=== PATIENT | female | born 1985 ===

== ENCOUNTER 2019-03-20 10:00 | Inpatient (IN) | payer OTHER ==
[2019-03-20 10:55] VITALS: BMI 29.6
[2019-03-20] MEDS ORDERED: BUTORPHANOL TARTRATE 1 MG/ML VIAL ONE ×2 (11:00)
[2019-03-20] MEDS ORDERED: PROMETHAZINE HCL 25 MG/1 ML VIAL ONE (11:00)
[2019-03-20] MEDS: DEXTROSE 5%-LACTATED RINGERS 1,000 ML IV SCH (11:00)
[2019-03-20 11:15] LABS: BASO % 0.4 % (0-2.0); EOS % 0.4 % (0-4.5); HEMATOCRIT 36.4 % (32.4-45.2); HEMOGLOBIN 11.9 GM/dL (10.7-15.3); LYMPH % 11.8 % (8-40); MCH 27.2 pg (25.7-33.7); MCHC 32.7 g/dl (32.0-36.0); MEAN CELL VOLUME 83.3 fl (80-96); MEAN PLT VOLUME 9.3 fl (7.5-11.1); MONO % 7.8 % (3.8-10.2); NEUT % 79.6 % (42.8-82.8); PLATELET COUNT 298 K/MM3 (134-434); RBC 4.37 M/mm3 (3.60-5.2); RDW 16.9 % (11.6-15.6); WHITE BLOOD COUNT 13.3 K/mm3 (4.0-10.0)
[2019-03-20 11:26] LABS: INR 0.95 (0.83-1.09); PROTHROMBIN TIME (PATIENT) 11.2 SEC (9.7-13.0)
[2019-03-20 11:29] LABS: ACTIVATED PTT 27.2 SECONDS (25.2-36.5)
[2019-03-20 11:40] LABS: BLOOD UREA NITROGEN 7.8 mg/dL (7-18); CALCIUM 9.4 mg/dL (8.5-10.1); CREATININE 0.7 mg/dL (0.55-1.3); POTASSIUM 4.2 mmol/L (3.5-5.1)
--- NOTE | 2019-03-20 13:48 | HP ---
Past Medical History - Primary Care Physician PCP:: Robby Louis - Admission Chief Complaint: 38 weeks, labor History Source: Patient Limitations to Obtaining History: No Limitations - Past Medical History ...: 4 ...Para: 1 ...Term: 1 ...Spon : 1 ...Induced : 1 ...LMP: 06/13/18 ... Weeks Gestation by Dates: 39.5 ...EDC by Dates: 03/22/19 ...EDC by Sono: 03/20/19 Heme/Onc: Yes: Anemia - Past Surgical History Hx Myomectomy: No Hx Transabdominal Cerclage: No - Smoking History Smoking history: Never smoked Have you smoked in the past 12 months: No - Alcohol/Substance Use Hx Alcohol Use: No History of Substance Use: reports: None - Social History ADL: Independent History of Recent Travel: No Home Medications - Allergies Allergies/Adverse Reactions: Allergies Allergy/AdvReac Type Severity Reaction Status Date / Time No Known Allergies Allergy Verified 03/20/19 11:30 - Home Medications Home Medications: Ambulatory Orders Vitamins (Sjr) - 1 tab PO DAILY 05/17/13 Review of Systems - Review of Systems Constitutional: reports: No Symptoms Eyes: reports: No Symptoms HENT: reports: No Symptoms Neck: reports: No Symptoms Cardiovascular: reports: No Symptoms Respiratory: reports: No Symptoms Gastrointestinal: reports: No Symptoms Genitourinary: reports: No Symptoms Breasts: reports: No Symptoms Reported Musculoskeletal: reports: No Symptoms Integumentary: reports: No Symptoms Neurological: reports: No Symptoms Endocrine: reports: No Symptoms Hematology/Lymphatic: reports: No Symptoms Psychiatric: reports: No Symptoms Physical Exam - Maternity Vital Signs: Vital Signs Temperature 98.2 F 03/20/19 13:00 Pulse Rate 91 H 03/20/19 13:00 Respiratory Rate 20 03/20/19 13:00 Blood Pressure 118/62 03/20/19 13:00 O2 Sat by Pulse Oximetry (%) Constitutional: Yes: Well Nourished, No Distress, Calm Eyes: Yes: WNL, Conjunctiva Clear, EOM Intact HENT: Yes: WNL, Atraumatic, Normocephalic Neck: Yes: WNL, Supple, Trachea Midline Cardiovascular: Yes: WNL, Regular Rate and Rhythm Breast(s): Yes: WNL - Abdominal Exam/OB Fundal Height: 40 Number of Fetuses: Single Presentation: Vertex Contractions: Yes Regularity: Irregular Intensity: Mod/Strong Monitor Mode: External Heart Rate Location: [facility] Category: I Accelerations: Non-Uniform Decelerations: None - Vaginal Exam/OB Vaginal Bleediing: No Speculum Exam: No Dilatation (cm): 4 cm Effacement (%): 80 Amniotic Membrane Status: Intact Presentation: Vertex/Position Station: -2 - Physical Exam Musculoskeletal: Yes: WNL Extremities: Yes: WNL Edema: LLE: Trace, RLE: Trace Psychiatric: Yes: WNL - Labs Lab Results: CBC, BMP 03/20/19 10:45 03/20/19 10:45 Hemorrhage Risk Assessment - Risk Factors Medium Risk Factors: Yes: None High Risk Factors: Yes: None Risk Score: 1 Risk Level: Medium Risk Problem List - Problems (1) with 39 completed weeks gestation Code(s): Z3A.39 - 39 WEEKS GESTATION OF (2) Labor established Code(s): [id number] - Assessment/Plan admit for vaginal delivery FHM GBS negative if irregular contractions advised pitocin stimulation
[2019-03-20] MEDS ORDERED: PROMETHAZINE HCL 25 MG/1 ML VIAL IVPB ONE (14:40)
[2019-03-20] MEDS ORDERED: BUTORPHANOL TARTRATE 1 MG/ML VIAL IVPUSH ONE (14:40)
--- NOTE | 2019-03-20 14:42 | PN ---
Progress Note (short form) - Note Progress Note: cx 5 cm 80 vx -2 mi, fhr cat 1, arom, light mec, stain AF , irregular contraction Problem List - Problems (1) with 39 completed weeks gestation Code(s): Z3A.39 - 39 WEEKS GESTATION OF (2) Labor established Code(s): [id number] -
[2019-03-20] MEDS ORDERED: FENTANYL/BUPIVACAINE/NS/PF - PCEA - 50 ML DISP.SYRIN EP ONE (15:07)
[2019-03-20] MEDS ORDERED: NALOXONE HCL 0.4 MG/ML VIAL IVPUSH PRN (15:12)
[2019-03-20] MEDS ORDERED: LIDO 2%/EPI 1:200000 PRESRVFRE (20 ML SDVIAL) ONE (15:14)
[2019-03-20] MEDS ORDERED: BUPIVACAINE HCL/PF 2.5 MG/ML - 30 ML VIAL IJ ONE (15:14)
[2019-03-20] MEDS ORDERED: FENTANYL/BUPIVACAINE/NS/PF - PCEA - 50 ML DISP.SYRIN EP SCH (15:15)
[2019-03-20] MEDS ORDERED: ELECTROLYTE-148 SOLN 1,000 ML IV SCH ×2 (15:30→17:45)
[2019-03-20] MEDS ORDERED: OXYTOCIN 20 UNITS in 0.9% NS 20 UNIT/1,000 ML INFUS.BAG IV ONE (15:41)
[2019-03-20] MEDS ORDERED: OXYTOCIN 30 UNITS in 0.9% NS 30 UNIT/500 ML INFUS.BAG IVPB ONE (15:41)
[2019-03-20] MEDS ORDERED: OXYTOCIN 30 UNITS in 0.9% NS 30 UNIT/500 ML INFUS.BAG IVPB SCH (17:15)
[2019-03-20] MEDS ORDERED: WITCH HAZEL 50% (TUCKS) 40 PAD/JAR PAD TP PRN (17:35)
[2019-03-20] MEDS ORDERED: METHYLERGONOVINE MALEATE 0.2 MG/1 ML AMP IM PRN (17:35)
[2019-03-20] MEDS ORDERED: BENZOCAINE 28 GM HEMORRHOIDAL OINTMENT TP PRN (17:35)
[2019-03-20] MEDS ORDERED: BENZOCAINE 20% 57 GM BOTTLE TP PRN (17:35)
[2019-03-20] MEDS ORDERED: BISACODYL 10 MG SUPP.RECT RC PRN (17:35)
--- NOTE | 2019-03-20 17:41 | PN ---
Delivery - Delivery Vaginal Delivery: Spontaneous (cx fully dilated, head delivered , nasopharynx suctioned no cord ant and post. delivered with no difficulty , live baby boy, 9/9 , placeta complete , spont. no laceraction, no complication) Type of Anesthesia: Epidural Episiotomy/Laceration: None EBL (cc): 300 Delivery, Single - Feeding Plan Initial Plan: Elected not to breastfeed exclusively throughout hospitalization
[2019-03-20] MEDS ORDERED: OXYTOCIN 20 UNITS in 0.9% NS 20 UNIT/1,000 ML INFUS.BAG IV SCH (17:45)
[2019-03-21] MEDS: DEXTROSE 5%-LACTATED RINGERS 1,000 ML IV SCH (01:00)
--- NOTE | 2019-03-21 08:19 | PN ---
Progress Note (short form) - Note Progress Note: ppd 1 doing well, no c/o CBC, BMP 03/20/19 10:45 03/20/19 10:45 Last Vital Signs Temp Pulse Resp BP Pulse Ox 98.5 F 96 H 20 103/81 99 03/21/19 06:00 03/21/19 06:00 03/21/19 06:00 03/21/19 06:00 03/20/19 16:45 abdomen soft, non tender , no cva lochia mild no calf tenderness plan ambulate, cbc for d/c home in am Problem List - Problems (1) with 39 completed weeks gestation Code(s): Z3A.39 - 39 WEEKS GESTATION OF (2) Labor established Code(s): [id number] -
[2019-03-21] MEDS: IBUPROFEN 600 MG TABLET (FP) PO PRN ×2 (08:40→12:46)
[2019-03-21] MEDS: ACETAMINOPHEN 325 MG TABLET (FP) PO PRN ×2 (08:40→12:43)
[2019-03-21] MEDS: FERROUS SO4 325 MG TABLET (FP) PO SCH ×2 (08:40→18:42)
[2019-03-21 08:50] LABS: BASO % 0.4 % (0-2.0); EOS % 0.3 % (0-4.5); HEMATOCRIT 31.5 % (32.4-45.2); HEMOGLOBIN 10.1 GM/dL (10.7-15.3); LYMPH % 12.4 % (8-40); MCH 26.6 pg (25.7-33.7); MCHC 31.9 g/dl (32.0-36.0); MEAN CELL VOLUME 83.3 fl (80-96); MEAN PLT VOLUME 9.1 fl (7.5-11.1); MONO % 8.3 % (3.8-10.2); NEUT % 78.6 % (42.8-82.8); PLATELET COUNT 274 K/MM3 (134-434); RBC 3.79 M/mm3 (3.60-5.2); RDW 17.1 % (11.6-15.6); WHITE BLOOD COUNT 14.7 K/mm3 (4.0-10.0)
[2019-03-21] MEDS: PRENATAL VITAMINS W/ FOLIC ACID TABLET (FP) PO SCH (09:03)
[2019-03-21] MEDS ORDERED: IBUPROFEN 600 MG TABLET (FP) PO ONE (12:40)
[2019-03-21] MEDS ORDERED: ACETAMINOPHEN 325 MG TABLET (FP) ONE (12:41)
[2019-03-21] MEDS ORDERED: SENNOSIDES/DOCUSATE COMBO (SENNA PLUS) TABLET (UD) PO PRN (22:00)
[2019-03-22] MEDS: IBUPROFEN 600 MG TABLET (FP) PO PRN (08:50)
[2019-03-22] MEDS: FERROUS SO4 325 MG TABLET (FP) PO SCH (08:50)
[2019-03-22] MEDS: ACETAMINOPHEN 325 MG TABLET (FP) PO PRN (08:51)
[2019-03-22] MEDS: PRENATAL VITAMINS W/ FOLIC ACID TABLET (FP) PO SCH (09:52)
[2019-03-22] MEDS ORDERED: DIPHTH,PERTUSS(ACELL),TET 0.5 ML DISP.SYRIN IM ONE (10:00)
--- NOTE | 2019-03-22 13:57 | DS ---
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: Vital Signs Temperature 97.8 F 03/21/19 20:24 Pulse Rate 96 H 03/21/19 20:24 Respiratory Rate 20 03/21/19 20:24 Blood Pressure 119/65 03/21/19 20:24 O2 Sat by Pulse Oximetry (%) 99 03/20/19 16:45 Constitutional: Yes: Well Nourished, No Distress, Calm Eyes: Yes: WNL, Conjunctiva Clear HENT: Yes: WNL, Atraumatic, Normocephalic Neck: Yes: WNL, Supple, Trachea Midline Cardiovascular: Yes: WNL, Regular Rate and Rhythm Respiratory: Yes: WNL, Regular, CTA Bilaterally Gastrointestinal: Yes: WNL, Normal Bowel Sounds, Soft Renal/: Yes: WNL Pelvis: Yes: WNL External Genitalia: Yes: Normal ....Post : Yes: Uterus firm, Uterus non-tender Musculoskeletal: Yes: WNL Extremities: Yes: WNL Edema: No Integumentary: Yes: WNL Neurological: Yes: WNL, Alert, Oriented ...Motor Strength: WNL Psychiatric: Yes: WNL, Alert, Oriented Labs: CBC, BMP 03/21/19 08:10 03/20/19 10:45 Delivery - Delivery Vaginal Delivery: Spontaneous (cx fully dilated, head delivered , nasopharynx suctioned no cord ant and post. delivered with no difficulty , live baby boy, 9/9 , placeta complete , spont. 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 Gender: Male Weight: 8 lb Position: Left, OA Total Hours ROM (Hrs/Mins): 8H25 - 1 Minute Total Score: 9 5 Minutes Total Score: 9 - Feeding Plan Initial Plan: Exclusive throughout hospitalization Discharge Summary Problems reviewed: Yes Reason For Visit: LABOR ADMISSION Current Active Problems Labor established (Acute) with 39 completed weeks gestation (Acute) Other Procedures: normal vaginal delivery Hospital Course: unremarkable Health Concerns: none Plan of Treatment: RTO 6 wks Condition: Good - Instructions Diet, Activity, Other Instructions: Physical activity Resume your normal everyday activity as tolerated no heavy lifting or exercise until seen by your surgeon. You may walk unlimited lyndsey of and climb stairs. You may resume driving the car when you feel safe and comfortable behind the wheel. No sexual activity as instructed. Wound care If you have a bandage, leave it on, and keep dry for 48-72 hours. After that time discard the outer bandage. If they are tapes on the skin under the out of bandage leave them in place. They will peel off in the next 7 to 10 days. Do Not Peel them off. You may shower the day after surgery. If there are tapes present on the skin, you may shower over them. Diet There are no dietary restrictions. Eat healthy, high-fiber foods. Drink 6 to 8 glasses of liquid each day. This will assist in keeping your bowels are regular. Pain management You may take Tylenol or acetaminophen or Ibuprofen (for example, Motrin, Advil etc.) from my pain prescription medication is ordered should be taken as prescribed for moderate to severe pain. Call MD for any of the following: Severe pain not relieved by medication Fever of 101 or higher Excessive bleeding or drainage on dressing Inability to urinate Call Dr. Mcnamara and make appt. to be seen in 4 to 6 weeks. Referrals: Kari Mcnamara MD [Staff Physician] - Disposition: HOME - Home Medications Comprehensive Discharge Medication List: Ambulatory Orders Vitamins (Sjr) - 1 tab PO DAILY 05/17/13 Prescription Drug Monitoring Program (I-STOP) results: I-STOP reviewed and no issues identified
[2019-03-22 15:00] VITALS: BP 120/71; PULSE 89; TEMP 98.7
== END 2019-03-22 16:45 | disposition home or self-care (01) | DRG 560 ==
LOC: JLDR 10:00 → J3W 03-21 14:01
PROVIDERS: ADMIT Obstetrics & Gynecology; ATTEND Obstetrics & Gynecology
PROC: 10E0XZZ Delivery of Products of Conception, External Approach (ICD-10-PCS; principal; 2019-03-20)
DX: O80 Encounter for full-term uncomplicated delivery (principal); Z3A.39 39 weeks gestation of pregnancy; Z37.0 Single live birth
CPT/HCPCS: 36415; 36600; 59409; 80048; 82803; 85025; 85610; 85730; 86593; 86850; 86900; 86901